=== PATIENT | female | born 1970 | race Caucasian/White ===

== ENCOUNTER → 2017-01-31 | Outpatient (CLI) | payer BC | LOC: RAD 12:11 | DX: M25.552 Pain in left hip (principal); M25.551 Pain in right hip; R10.2 Pelvic and perineal pain ==

== ENCOUNTER → 2017-01-31 | Outpatient (CLI) | payer BC | LOC: BC 08:53 | DX: Z12.31 Encounter for screening mammogram for malignant neoplasm of breast (principal) ==